=== PATIENT | male | born 1970 | race African-American/Black ===

== ENCOUNTER → 2021-05-17 | Day surgery (SDC) | payer OTHER ==
[~2021-05-17] MED LIST: ASPIRIN81 MG PO; ATENOLOL25 MG PO; ATORVASTATIN CA20 MG PO; DEXAMETHASONE SOD PHOS INJ 4 MG/ML VIAL ONE; EPHEDRINE SULFATE INJ 50 MG/ML VIAL ONE; EPINEPHRINE 1 MG/ML 30ML VIAL ONE; ETODOLAC PO; FENTANYL CITRATE/PF 100MCG/2 ML INJ ONE; GLYCOPYRROLATE INJ 0.2 MG/ML VIAL ONE; HYDROCODON-ACE1 EA15; KETOROLAC TROMETHAMINE 30 MG/ML VIAL ONE; LIDOCAINE HCL 2% LOCAL INJ 5 ML SDV VIAL INJ ONE; MIDAZOLAM HCL 2 MG/2 ML VIAL ONE; NEOSTIGMINE 1 MG/ML 10ML VIAL ONE; OMEPRAZOLE40 MG PO; ONDANSETRON HCL INJ 2MG/ML 2ML 2 MG/ML VIAL ONE; PHENYLEPHRINE HCL 1% 10 MG/ML VIAL ONE; POVIDONE IODINE 0.05% 0.05 % ML PO ONE; PROPOFOL IV EMULSION 10 MG/ML 20 ML VIAL ONE; ROCURONIUM BROMIDE 10 MG/ML 5ML VIAL IV ONE; ROPIVACAINE 0.5% 5 MG/ML 30 ML SDV ONE; SEVOFLURANE INHAL SOLN 250 ML PEN BTL ONE; SODIUM CHLORIDE 0.9% 50ML 50 ML ONE
[2021-05-17 11:55] VITALS: BP 129/66
== END | disposition home or self-care (01) ==
LOC: OR 07:27
PROVIDERS: ATTEND Specialist
DX: S46.011A Strain of muscle(s) and tendon(s) of the rotator cuff of right shoulder, initial encounter (principal); K21.9 Gastro-esophageal reflux disease without esophagitis; I10 Essential (primary) hypertension; Z01.810 Encounter for preprocedural cardiovascular examination; Z01.812 Encounter for preprocedural laboratory examination
CPT/HCPCS: 29826; 29827; 93005; C1713; J0690; J1100; J1885; J2001; J2250; J2370; J2405; J2704; J2710; J2795; J3010; U0002